=== PATIENT | female | born 1990 | race Caucasian/White ===

== ENCOUNTER 2022-02-18 07:24 | Emergency (ER) | payer OTHER ==
[~2022-02-18] VITALS: Ht 170.2 cm; Wt 59.0 kg
[2022-02-18] MEDS ORDERED: MUCINEX1200 MG PO (08:46)
== END 2022-02-18 08:57 | disposition home or self-care (01) ==
LOC: ER 07:24
DX: H10.31 Unspecified acute conjunctivitis, right eye (principal)